=== PATIENT | male | born 1985 | race Caucasian/White ===

== ENCOUNTER 2020-01-20 00:24 | Emergency (ER) | payer OTHER, SELFPAY ==
[~2020-01-20] VITALS: Ht 172.7 cm; Wt 90.7 kg
[2020-01-20 00:31] VITALS: Ht 172.7 cm; Wt 90.7 kg
[2020-01-20 03:08] VITALS: BP 151/96
== END 2020-01-20 03:08 | disposition home or self-care (01) ==
LOC: ED 00:24
DX: J40 Bronchitis, not specified as acute or chronic (principal); K52.9 Noninfective gastroenteritis and colitis, unspecified; Z20.828 Contact with and (suspected) exposure to other viral communicable diseases
CPT/HCPCS: Q0092; Q0162